=== PATIENT | male | born 1965 | race Caucasian/White ===

== ENCOUNTER 2022-11-14 10:56 | Day surgery (SDC) | payer BC ==
[~2022-11-14 10:56] MED LIST: Lactated Ringers 1,000 ML IV SCH; Sodium Chloride 0.9% 10 ML Syringe FLUSH PRN; Sodium Chloride 0.9% 2.5 ML Syringe FLUSH PRN; Sodium Chloride 0.9% 20 ML SDV IV PRN
[2022-11-14] MEDS ORDERED: Lidocaine 2% 5 ML SDV ONE (11:47)
[2022-11-14] MEDS ORDERED: Propofol 200 MG/20 ML SDV ONE (11:48)
== END 2022-11-14 12:50 | disposition home or self-care (01) ==
LOC: MW.SDS 10:56
PROVIDERS: ATTEND Surgery
DX: Z12.11 Encounter for screening for malignant neoplasm of colon (principal); D12.2 Benign neoplasm of ascending colon; D12.3 Benign neoplasm of transverse colon; D12.5 Benign neoplasm of sigmoid colon; M54.50 Low back pain, unspecified; M19.90 Unspecified osteoarthritis, unspecified site; F17.210 Nicotine dependence, cigarettes, uncomplicated; Z80.0 Family history of malignant neoplasm of digestive organs
CPT/HCPCS: 45385; J2704; J7120; J3490